=== PATIENT | female | born 1995 | race African-American/Black ===

== ENCOUNTER 2019-06-27 19:13 | Emergency (ER) | payer OTHER ==
[~2019-06-27] VITALS: Ht 160 cm; Wt 49.9 kg
[2019-06-27 19:29] VITALS: BP 128/83
--- NOTE | 2019-06-27 19:30 | NUR ---
ED Nurse Note: PATIENT WALKED IN TO ER C/O BEING POSTITIVE FOR TRICHOMONAS. STATED THAT GOT A CALL FROM HER OBGYN AND THEY TOLD HER THAT SHE IS POSITIVE FOR TRICHOMONAS. AAO X4, VSS AT THIS TIME.
--- NOTE | 2019-06-27 20:12 | Emergency Room Report ---
History of Present Illness General Chief Complaint: Female Urogenital Problems Source: Patient Present Illness HPI 23-year-old female patient reports that she was first diagnosed with chlamydia weeks ago and was treated. When she went back to her disc recordist due to having repeated vaginal discharge despite the treatment for chlamydia, wet mount was done and patient was diagnosed with trichomoniasis. Patient try to go to her disc recordist today however was told to come back in 3 days from now and was given the option to go to the emergency room if wanted to start treatment for trichomoniasis right away. Denies being sexually active after the onset of her discharge. Reports that her last menstrual period was a month ago and regular. Denies . Denies urinary frequency, dysuria, hematuria, suprapubic pain, pain radiation to the flanks, nausea vomiting, fever and chills. Patient also reports that her sexual partner has been notified by her regarding the trichomoniasis results and to be treated. Patient denies alcohol intake Allergies: Coded Allergies: No Known Allergies (Unverified , 06/27/19) Patient History Past Medical History: see triage record Past Surgical History: unable to obtain Pertinent Family History: none Last Menstrual Period: 05/24/19 Now: No Immunizations: UTD Reviewed Nursing Documentation: PMH: Agreed; PSxH: Agreed Nursing Documentation-PMH Past Medical History: No History, Except For Review of Systems All Other Systems: negative except mentioned in HPI Physical Exam Vital Signs Date Time Temp Pulse Resp B/P (MAP) Pulse Ox O2 Delivery O2 Flow Rate FiO2 06/27/19 19:15 98.1 75 16 128/83 (98) 98 Sp02 EP Interpretation: reviewed, normal General Appearance: no apparent distress, alert, GCS 15, non-toxic Head: normocephalic, atraumatic Eyes: bilateral eye normal inspection, bilateral eye PERRL ENT: hearing grossly normal, normal pharynx, no angioedema, normal voice Neck: full range of motion, supple/symm/no masses Respiratory: chest non-tender, lungs clear, normal breath sounds, speaking full sentences Cardiovascular #1: regular rate, rhythm, no edema, no murmur, normal capillary refill Gastrointestinal: normal bowel sounds, non tender, soft, non-distended, no guarding, no rebound Rectal: deferred Genitourinary: normal inspection, no CVA tenderness Musculoskeletal: back normal, gait/station normal, normal range of motion, non- tender Neurologic: alert, oriented x3, responsive, motor strength/tone normal, sensory intact, speech normal Psychiatric: judgement/insight normal, memory normal, mood/affect normal, no suicidal/homicidal ideation Skin: no rash Lymphatic: no adenopathy Medical Decision Making PA Attestation All my diagnosis and treatment plans were reviewed ad discussed with my supervising physician Dr. Wheeler Diagnostic Impression: Primary Impression: Trichomoniasis ER Course 23-year-old female patient reports that she was first diagnosed with chlamydia weeks ago and was treated. When she went back to her disc recordist due to having repeated vaginal discharge despite the treatment for chlamydia, wet mount was done and patient was diagnosed with trichomoniasis. Patient try to go to her disc recordist today however was told to come back in 3 days from now and was given the option to go to the emergency room if wanted to start treatment for trichomoniasis right away. Denies being sexually active after the onset of her discharge. Reports that her last menstrual period was a month ago and regular. Denies . Denies urinary frequency, dysuria, hematuria, suprapubic pain, pain radiation to the flanks, nausea vomiting, fever and chills. Patient also reports that her sexual partner has been notified by her regarding the trichomoniasis results and to be treated. Patient denies alcohol intake Ddx considered but are not limited to: vaginitis, yeast infection, BV, chlamydia , Gonorrhea, syphilis, HIV, herpes 1 or 2, trichomoniasis Vital signs: are WNL, pt. is afebrile H&PE are most consistent with : Trichomoniasis ORDERS: UA, urine , metronidazole ED INTERVENTIONS: None required at this time. DISCHARGE: At this time pt. is stable for d/c to home. Will provide printed patient care instructions, and any necessary prescriptions. Care plan and follow up instructions have been discussed with the patient prior to discharge. Take medication as directed follow-up with your disc recordist emergency room advised patient to take 2 tablets to prevent nausea vomiting. Patient actually not drink any alcohol while on the medication. Last Vital Signs Date Time Temp Pulse Resp B/P (MAP) Pulse Ox O2 Delivery O2 Flow Rate FiO2 06/27/19 19:29 98.1 16 128/83 98 06/27/19 19:15 75 Disposition: HOME, SELF-CARE Condition: Stable Scripts Metronidazole* (FLAGYL*) 500 Mg Tablet 2 TAB ORAL BID for 1 Day, #4 TAB Prov: Maame Valadez 06/27/19 Referrals: NOT CHOSEN [facility]/MD,REFERRING (PCP) Patient Instructions: Trichomoniasis, Vaginitis Additional Instructions: Follow-up with your primary care provider and your ELECTRICAL ASSEMBLER take medication as directed avoid drinking alcohol with a given medication Maame Valadez Jun 27, 2019 20:12
[2019-06-27] MEDS ORDERED: METRONIDAZOLE500 MG ORAL (20:13)
[2019-06-27 20:20] LABS: APPEARANCE,URINE CLEAR; BILIRUBIN, URINE NEGATIVE (NEGATIVE); COLOR,URINE PALE YELLOW; GLUCOSE, URINE (UA) NEGATIVE (NEGATIVE); KETONES,URINE NEGATIVE (NEGATIVE); LEUKOCYTE ESTERASE ,URINE 2+ (NEGATIVE); NITRITE,URINE NEGATIVE (NEGATIVE); PH,URINE 5 (4.5-8.0); PROTEIN,URINE NEGATIVE (NEGATIVE); UROBILINOGEN,URINE NORMAL MG/DL (0.0-1.0)
[2019-06-27 20:46] VITALS: BP 128/83
--- NOTE | 2019-06-27 20:47 | NUR ---
ED Nurse Note: Pt cleared by health care Provider for discharge. DC instructions/prescription was given and explained to pt and verbalized understanding of teachings. All medical deviecs such as ID band removed. Pt is AAO x4, ambulatory and left with all personal belongings.
== END 2019-06-27 20:47 | disposition home or self-care (01) ==
LOC: EMR 19:46
DX: A59.9 Trichomoniasis, unspecified (principal)
CPT/HCPCS: 81001; 81025; 99282

== ENCOUNTER 2020-08-16 18:55 | Emergency (ER) | payer OTHER ==
[~2020-08-16] VITALS: Ht 160 cm; Wt 46.3 kg
[~2020-08-16 18:55] MED LIST: METRONIDAZOLE500 MG ORAL
--- NOTE | 2020-08-16 19:05 | NUR ---
ED Nurse Note: walked in to ed from home c/o pelvic pain onset 4 days ago. denies bleeding. pt states she is . vss, nad, aaox4, ambulatory, erpa at bedside
--- NOTE | 2020-08-16 19:25 | NUR ---
ED Nurse Note: urine collected and sent to lab. pt went for us
--- NOTE | 2020-08-16 19:50 | NUR ---
ED Nurse Note: pt back from us
--- NOTE | 2020-08-16 20:20 | NUR ---
ED Nurse Note: blood drawn and sent to lab
--- NOTE | 2020-08-16 20:42 | Diagnostic Imaging Report ---
EXAM: US First Trimester , Transabdominal and Transvaginal CLINICAL HISTORY: PAIN TECHNIQUE: Real-time transabdominal and transvaginal obstetrical ultrasound of the maternal pelvis and a first trimester with image documentation. Transvaginal imaging was used for better evaluation of the fetus and adnexa. COMPARISON: No relevant prior studies available. FINDINGS: A definitive intrauterine is not identified. Significant of which is unknown given the fact that there are no beta hCG results and the only reported positive test was done at the patient's home. There is significant heterogeneous thickening of the endometrium the single measurement of the endometrium was approximately 15 mm though it appears to be significantly thicker than that at multiple locations. There is a tiny indeterminate cystic focus within the endometrium that measures approximately 4.2 x 4.4 mm. No yolk sac or embryonic pole identified. Finding is indeterminate for early gestational sac or pseudo- gestational sac. Negative for ovarian torsion on the right. Right ovary is grossly morphologically unremarkable. Negative for ovarian torsion. There is free fluid in the left adnexa. There is a large cystic mass left adnexa measuring 4.4 x 3.1 cm. There is posterior acoustical enhancement. There is an irregular hypoechoic focus in the central left ovary that is indeterminate but may reflect a functional cyst. Ectopic cannot be excluded in the absence of identifying a definitive intrauterine . Both current beta-hCG and follow-up serial beta hCG are recommended. More immediate VISITOR SERVICES SPECIALIST consultation will likely be required if the current beta-hCG results are high enough that an IUP should be identified.
[2020-08-16 20:43] LABS: APPEARANCE,URINE SLIGHTLY CLOUDY; BILIRUBIN, URINE NEGATIVE (NEGATIVE); GLUCOSE, URINE (UA) NEGATIVE (NEGATIVE); KETONES,URINE 4+ (NEGATIVE); LEUKOCYTE ESTERASE ,URINE 1+ (NEGATIVE); NITRITE,URINE NEGATIVE (NEGATIVE); PH,URINE 5 (4.5-8.0); PROTEIN,URINE 2+ (NEGATIVE); UROBILINOGEN,URINE NORMAL MG/DL (0.0-1.0)
[2020-08-16 20:47] LABS: COLOR,URINE YELLOW
[2020-08-16 21:03] LABS: BASOPHILS % (AUTO) 1.3 % (0.0-2.0); EOSINOPHILS % (AUTO) 0.5 % (0.0-3.0); HEMATOCRIT 36.2 % (37.0-47.0); HEMOGLOBIN 11.7 G/DL (12.0-16.0); LYMPHOCYTES % (AUTO) 19.1 % (20.0-45.0); MEAN CORPUSCULAR VOLUME 91 FL (80-99); MONOCYTES % (AUTO) 8.8 % (1.0-10.0); NEUTROPHILS % (AUTO) 70.3 % (45.0-75.0); PLATELET COUNT 230 K/UL (150-450); RED BLOOD COUNT 3.99 M/UL (4.20-5.40); RED CELL DISTRIBUTION WIDTH 14.5 % (11.6-14.8)
[2020-08-16 21:07] LABS: ALANINE AMINOTRANSFERASE 8 U/L (12-78); ALBUMIN 3.9 G/DL (3.4-5.0); ALBUMIN/GLOBULIN RATIO 1.1 (1.0-2.7); ALKALINE PHOSPHATASE 52 U/L (46-116); ASPARTATE AMINO TRANSFERASE 15 U/L (15-37); BILIRUBIN,TOTAL 0.3 MG/DL (0.2-1.0); BLOOD UREA NITROGEN 16 mg/dL (7-18); CALCIUM 8.6 MG/DL (8.5-10.1); CREATININE 0.9 MG/DL (0.55-1.30)
[2020-08-16 21:17] LABS: POTASSIUM 4.1 MMOL/L (3.5-5.1); SODIUM 136 MMOL/L (136-145)
[2020-08-16 21:18] LABS: ANION GAP 9 mmol/L (5-15); CARBON DIOXIDE 23 MMOL/L (21-32); CHLORIDE 104 MMOL/L (98-107)
--- NOTE | 2020-08-16 21:41 | Emergency Room Report ---
History of Present Illness General Chief Complaint: Complications Source: Patient Present Illness HPI 24-year-old female who is G0, P1 here complaining of pelvic pain and urinary frequency. Patient reports that she just found out she is 2 days ago. Denies any nausea vomiting diarrhea. Denies any vaginal discharge. Reports that she was just tested for entire STD panel tested negative. Denies any headache and dizziness. Has not taken medication for symptom relief. 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 Patient is stable. Allergies: Coded Allergies: No Known Allergies (Unverified , 06/27/19) COVID-19 Screening Contact w/high risk pt: No Experienced COVID-19 symptoms?: No COVID-19 Testing performed BUTT SAWYER: No Patient History Past Medical History: see triage record Past Surgical History: none Pertinent Family History: none Now: Yes Immunizations: UTD Reviewed Nursing Documentation: PMH: Agreed; PSxH: Agreed Nursing Documentation-PMH Past Medical History: No Stated History Review of Systems All Other Systems: negative except mentioned in HPI Physical Exam Vital Signs Date Time Temp Pulse Resp B/P (MAP) Pulse Ox O2 Delivery O2 Flow Rate FiO2 08/16/20 19:04 97.9 90 17 123/85 (98) 99 Room Air Sp02 EP Interpretation: reviewed, normal General Appearance: no apparent distress, alert, GCS 15, non-toxic Head: normocephalic, atraumatic Eyes: bilateral eye normal inspection, bilateral eye PERRL ENT: hearing grossly normal, normal pharynx, no angioedema, normal voice Neck: full range of motion, supple/symm/no masses Respiratory: chest non-tender, lungs clear, normal breath sounds, speaking full sentences Cardiovascular #1: regular rate, rhythm, no edema Cardiovascular #2: 2+ carotid (R), 2+ carotid (L), 2+ radial (R), 2+ radial (L), 2+ dorsalis pedis (R), 2+ dorsalis pedis (L) Gastrointestinal: normal bowel sounds, non tender, soft, non-distended, no guarding, no rebound Rectal: deferred Genitourinary: no CVA tenderness Musculoskeletal: back normal Neurologic: alert, motor strength/tone normal, oriented x3, sensory intact, responsive, speech normal Psychiatric: judgement/insight normal, memory normal, mood/affect normal, no suicidal/homicidal ideation Skin: no rash Lymphatic: no adenopathy Medical Decision Making PA Attestation ALL Diagnosis and treatment plan reviewed and discussed with my supervising physician Dr. Hebert Diagnostic Impression: Primary Impression: IUP (intrauterine ), incidental Additional Impression: UTI (urinary tract infection) during ER Course 24-year-old female who is G0, P1 here complaining of pelvic pain and urinary frequency. Patient reports that she just found out she is 2 days ago. Denies any nausea vomiting diarrhea. Denies any vaginal discharge. Reports that she was just tested for entire STD panel tested negative. Denies any headache and dizziness. Has not taken medication for symptom relief. 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 Patient is stable. Ddx considered but are not limited to: Ectopic , threatened , spontaneous , abdominal pain during , UTI, Vital signs: are WNL, pt. is afebrile H&PE are most consistent with: UTI and abdominal pain urine ORDERS: UA, urine cx, CBC, CMP, type and screen, OB ultrasound, hCG quantitative, Diclegis, Keflex, vitamins ED INTERVENTIONS: None required at this time. DISCHARGE: At this time pt. is stable for d/c to home. Will provide printed patient care instructions, and any necessary prescriptions. Care plan and follow up instructions have been discussed with the patient prior to discharge. List of clinics clinics for patient to follow-up with, patient to follow-up with PEDIATRIC LICENSED PRACTICAL NURSE, take medication as directed, if worsening symptoms return to the emergency room CT/MRI/US Diagnostic Results CT/MRI/US Diagnostic Results : Imaging Test Ordered: OB ultrasound Impression COMPARISON: No relevant prior studies available. FINDINGS: A definitive intrauterine is not identified. Significant of which is unknown given the fact that there are no beta hCG results and the only reported positive test was done at the patient's home. There is significant heterogeneous thickening of the endometrium the single measurement of the endometrium was approximately 15 mm though it appears to be significantly thicker than that at multiple locations. There is a tiny indeterminate cystic focus within the endometrium that measures approximately 4.2 x 4.4 mm. No yolk sac or embryonic pole identified. Finding is indeterminate for early gestational sac or pseudo-gestational sac. Negative for ovarian torsion on the right. Right ovary is grossly morphologically unremarkable. Negative for ovarian torsion. There is free fluid in the left adnexa. There is a large cystic mass left adnexa measuring 4.4 x 3.1 cm. There is posterior acoustical enhancement. There is an i rregular hypoechoic focus in the central left ovary that is indeterminate but may reflect a functional cyst. Ectopic cannot be excluded in the absence of identifying a definitive intrauterine . Both current beta- hCG and follow-up serial beta hCG are recommended. More immediate DOCUMENTATION SUPERVISOR consultation will likely be required if the current beta-hCG results are high en ough that an IUP should be identified. Last Vital Signs Date Time Temp Pulse Resp B/P (MAP) Pulse Ox O2 Delivery O2 Flow Rate FiO2 08/16/20 19:04 97.9 90 17 123/85 (98) 99 Room Air Disposition: HOME, SELF-CARE Condition: Stable Scripts #103/Iron Fumarate/Fa ( TABLET) 1 Each Tablet 1 EACH PO DAILY, #30 TAB Prov: Maame Valadez 08/16/20 Doxylamine/Pyridoxine Hcl (AILEEN VERDE 10-10 MG TABLET) 1 Each Tablet. 1 EACH PO TID, #21 TAB Prov: Maame Valadez 08/16/20 Cephalexin* (KEFLEX*) 500 Mg Capsule 500 MG ORAL EVERY 12 HOURS for 7 Days, #14 CAP 0 Refills Prov: Maame Valadez 08/16/20 Referrals: NOT CHOSEN [facility]/,REFERRING (PCP) Patient Instructions: Abdominal Pain During , Urinary Tract Infection, [id number] Additional Instructions: Take medication as directed, follow-up with DOCUMENTATION SUPERVISOR, if worsening symptoms return to emergency room Maame Valadez Aug 16, 2020 21:41
[2020-08-16 21:45] VITALS: BP 121/74
[2020-08-16] MEDS ORDERED: DICLEGIS DR 101 EACH PO (21:45)
[2020-08-16] MEDS ORDERED: CEPHALEXIN500 MG ORAL (21:45)
--- NOTE | 2020-08-16 21:45 | NUR ---
ER DISCHARGE NOTE: Patient is cleared to be discharged per ERMD, pt is aox4, on room air, with stable vital signs. pt was given dc and prescription instructions, pt was able to verbalize understanding, pt id band removed without complications. pt is able to ambulate with steady gait. pt took all belongings.
== END 2020-08-16 21:45 | disposition home or self-care (01) ==
LOC: EMR 19:49
DX: N39.0 Urinary tract infection, site not specified (principal); Z33.1 Pregnant state, incidental
CPT/HCPCS: 76801; 76817; 80053; 81003; 84702; 85025; 99284